=== PATIENT | male | born 1940 | race Caucasian/White ===

== ENCOUNTER → 2016-06-12 | Outpatient (CLI) | payer OTHER ==
[~2016-06-12] MED LIST: AMLODIPINE-ATO1 EAC8 PO; ELIQUIS5 MG PO; ISOSORBIDE MONO20 MG PO; LEVAQUIN500 MG PO; LOSARTAN POTAS100 MG PO; NITROSTAT 0.40.4 MG SL; TENORMIN 50 MG50 MG PO; TYLENOL 500 MG500 MG PO; VITAMIN B COMP1 EACH PO; ZYLOPRIM 100 M100 MG PO
[2016-06-12 12:37] LABS: HEMOGLOBIN 13.7 gm/dl (14.0-17.5); RED BLOOD COUNT 4.46 M/UL (4.20-5.50); WHITE BLOOD COUNT 8.3 K/UL (4.5-11.0)
== END ==
LOC: LAB 11:53
PROVIDERS: Internal Medicine Interventional Cardiology
DX: Z45.018 Encounter for adjustment and management of other part of cardiac pacemaker (principal)
CPT/HCPCS: 36415; 80048; 85025; 85610

== ENCOUNTER → 2016-06-15 | Outpatient (CLI) | payer OTHER ==
[~2016-06-15] VITALS: Ht 182.9 cm; Wt 118.8 kg
== END | disposition home or self-care (01) ==
LOC: CATH 06:59
DX: Z45.010 Encounter for checking and testing of cardiac pacemaker pulse generator [battery] (principal); I49.5 Sick sinus syndrome; I48.0 Paroxysmal atrial fibrillation; I10 Essential (primary) hypertension; R06.02 Shortness of breath; Z79.899 Other long term (current) drug therapy; Q23.1 Congenital insufficiency of aortic valve; Z79.02 Long term (current) use of antithrombotics/antiplatelets; Z79.1 Long term (current) use of non-steroidal anti-inflammatories (NSAID); I25.10 Atherosclerotic heart disease of native coronary artery without angina pectoris; Z86.718 Personal history of other venous thrombosis and embolism; M15.9 Polyosteoarthritis, unspecified; K21.9 Gastro-esophageal reflux disease without esophagitis; G47.30 Sleep apnea, unspecified; M10.9 Gout, unspecified
CPT/HCPCS: C1785; J2250; J3010; J3370; J7040; J7050; J7070

== ENCOUNTER → 2016-08-14 | Outpatient (CLI) | payer OTHER | LOC: HEART 5 07-31 07:30 | DX: R07.9 Chest pain, unspecified (principal); R94.39 Abnormal result of other cardiovascular function study | CPT/HCPCS: 78452; A9502; J2785 ==

== ENCOUNTER 2020-07-18 05:13 | Inpatient (IN) | payer MEDICARE ==
[~2020-07-18] VITALS: Ht 182.9 cm; Wt 122.5 kg
[2020-07-18] MEDS ORDERED: LOPRESSOR 50 MG50 MG PO (08:06)
[2020-07-18] MEDS ORDERED: PRIMIDONE50 MG PO (08:07)
[2020-07-18] MEDS ORDERED: ATORVASTATIN CA20 MG PO (08:08)
[2020-07-18] MEDS ORDERED: ISOSORBIDE MONO60 MG PO (08:08)
[2020-07-18] MEDS ORDERED: AMLODIPINE BESY10 MG PO (08:09)
[2020-07-18] MEDS ORDERED: HYDRALAZINE HCL50 MG PO (08:11)
[2020-07-18 10:09] LABS: RED BLOOD COUNT 4.2 M/UL (4.20-5.50); WHITE BLOOD COUNT 7.6 K/UL (4.5-11.0)
[2020-07-19 04:42] LABS: HEMOGLOBIN 13.9 gm/dl (14.0-17.5); RED BLOOD COUNT 4.47 M/UL (4.20-5.50); WHITE BLOOD COUNT 9.2 K/UL (4.5-11.0)
[2020-07-19] MEDS ORDERED: ELIQUIS 5 MG TAB5 MG PO (12:08)
[2020-07-19] MEDS ORDERED: ATORVASTATIN CA20 MG PO (12:08)
[2020-07-19] MEDS ORDERED: CARVEDILOL6.25 MG PO (12:08)
[2020-07-19] MEDS ORDERED: CLOPIDOGREL75 MG PO (12:08)
== END 2020-07-19 16:19 | disposition home or self-care (01) | DRG 281 ==
LOC: PROG CARE 07:37
PROVIDERS: Physician Assistant; ADMIT Internal Medicine
PROC: 4A023N7 Measurement of Cardiac Sampling and Pressure, Left Heart, Percutaneous Approach (ICD-10-PCS; principal; 2020-07-19)
PROC: B211YZZ Fluoroscopy of Multiple Coronary Arteries using Other Contrast (ICD-10-PCS; 2020-07-19)
DX: I21.4 Non-ST elevation (NSTEMI) myocardial infarction (principal); I48.21 Permanent atrial fibrillation; I16.0 Hypertensive urgency; I25.119 Atherosclerotic heart disease of native coronary artery with unspecified angina pectoris; M10.9 Gout, unspecified; I10 Essential (primary) hypertension; I49.5 Sick sinus syndrome; E66.01 Morbid (severe) obesity due to excess calories; E78.5 Hyperlipidemia, unspecified; Z79.01 Long term (current) use of anticoagulants; Z68.36 Body mass index [BMI] 36.0-36.9, adult; Z95.0 Presence of cardiac pacemaker; Z91.19 Patient's noncompliance with other medical treatment and regimen; Z86.718 Personal history of other venous thrombosis and embolism; Z82.3 Family history of stroke; Z82.49 Family history of ischemic heart disease and other diseases of the circulatory system; Z79.899 Other long term (current) drug therapy
CPT/HCPCS: ECHO; 36415; 71045; 80048; 80053; 80061; 82550; 82553; 84484; 85025; 85610; 85730; 93005; 93306; 99152; 99153; C1769; C1887; C1894; J1644; J2250; J3010; J7040; Q9967

== ENCOUNTER → 2021-08-29 | Outpatient (CLI) | payer MEDICARE ==
[~2021-08-29] MED LIST changes: +AMLODIPINE BESY10 MG PO; +ATORVASTATIN CA20 MG PO; +CARVEDILOL6.25 MG PO; +CLOPIDOGREL75 MG PO; +ELIQUIS 5 MG TAB5 MG PO; +HYDRALAZINE HCL50 MG PO; +ISOSORBIDE MONO60 MG PO; +LOPRESSOR 50 MG50 MG PO; +PRIMIDONE50 MG PO
== END ==
LOC: HEART 5 14:36
DX: R06.02 Shortness of breath (principal); I50.32 Chronic diastolic (congestive) heart failure; I27.20 Pulmonary hypertension, unspecified; I08.3 Combined rheumatic disorders of mitral, aortic and tricuspid valves
CPT/HCPCS: 93306